=== PATIENT | female | born 1945 | race Two or more races ===

== ENCOUNTER 2024-04-12 10:51 | Inpatient (IN) | payer MEDICARE, OTHER ==
[~2024-04-12] VITALS: Ht 157.5 cm; Wt 55.8 kg
[2024-04-12 11:36] LABS: BASOPHILS % (AUTO) 0.3 % (0.0-2.0); EOSINOPHILS % (AUTO) 0.2 % (0.0-6.0); HEMATOCRIT 26 % (33-45); HEMOGLOBIN 8.7 g/dL (11.5-14.8); LYMPHOCYTES # (AUTO) 0.6 K/uL (0.8-4.8); LYMPHOCYTES % (AUTO) 4.5 % (20.0-44.0); MEAN CORPUSCULAR HEMOGLOBIN 30 PG (26.0-33.0); MEAN CORPUSCULAR HGB CONC 33 g/dl (31.0-36.0); MEAN CORPUSCULAR VOLUME 91 fL (82-100); MONOCYTES # (AUTO) 1.1 K/uL (0.1-1.30); NEUTROPHILS # (AUTO) 12.1 K/uL (1.8-8.9); PLATELET COUNT (AUTO) 471 K/uL (150-450); RED BLOOD CELL COUNT(AUTO) 2.89 MIL/uL (4.0-5.2); WHITE BLOOD COUNT (AUTO) 13.9 K/uL (4.3-11.0)
[2024-04-12 11:52] LABS: CALCIUM, SERUM 10.4 mg/dL (8.5-10.1); CARBON DIOXIDE 31 mmol/L (21-32); CHLORIDE 98 mmol/L (98-107); CREATININE 1.6 mg/dL (0.6-1.3); GLUCOSE 131 mg/dL (74-106); POTASSIUM 3.7 mmol/L (3.5-5.1); SODIUM SERUM 134 mmol/L (136-145); UREA NITROGEN, BLOOD 51 mg/dL (7-18)
[2024-04-12 11:57] LABS: ALANINE AMINOTRANSFERASE 55 U/L (12-78); ALBUMIN 1.6 g/dL (3.4-5.0); ALKALINE PHOSPHATASE 147 U/L (46-116); ASPARTATE AMINOTRANSFERASE 41 U/L (15-37); BILIRUBIN,DIRECT 0.2 mg/dL (0.0-0.2); BILIRUBIN,TOTAL 0.6 mg/dL (0.2-1.0); LIPASE 97 U/L (16-77); TOTAL PROTEIN, SERUM 6.3 g/dL (6.4-8.2)
[2024-04-12] MEDS ORDERED: AMIN30LI66 PO (12:44)
[2024-04-12] MEDS ORDERED: HEPA50007 SQ (12:44)
[2024-04-12] MEDS ORDERED: PANT40TA49 PO (12:44)
[2024-04-12] MEDS ORDERED: MAGN400O6 PO (12:44)
[2024-04-12] MEDS ORDERED: INSU100V3 SQ (12:44)
[2024-04-12] MEDS ORDERED: ACET325T53 PO (12:44)
[2024-04-12] MEDS ORDERED: ATOR80TA PO (12:44)
[2024-04-12] MEDS ORDERED: GLUC1KIT IM (12:44)
[2024-04-12] MEDS ORDERED: BISA10SU11 RC (12:44)
[2024-04-12] MEDS ORDERED: NA P133E RC (12:44)
[2024-04-12] MEDS ORDERED: NALO4SPR NS (12:44)
[2024-04-12] MEDS ORDERED: ATEN50TA PO (12:44)
[2024-04-12] MEDS ORDERED: MELA3TAB41 PO (12:44)
[2024-04-12] MEDS ORDERED: DOCU100C36 PO (12:44)
[2024-04-12] MEDS ORDERED: SUCR1TAB PO (12:44)
[2024-04-12] MEDS ORDERED: FOLI0.8T23 PO (12:44)
[2024-04-12] MEDS ORDERED: HYDR-4076 PO (12:44)
[2024-04-12] MEDS ORDERED: LEVO75TA7 PO (12:44)
[2024-04-12] MEDS ORDERED: SENN8.6T19 PO (12:44)
[2024-04-12] MEDS ORDERED: ONDA-97 PO (12:44)
[2024-04-12] MEDS ORDERED: RISP1TAB97 PO (12:44)
[2024-04-12] MEDS ORDERED: CALC667T8 PO (12:44)
[2024-04-12] MEDS ORDERED: CHOL200059 PO (12:44)
[2024-04-12] MEDS ORDERED: HYDR-4077 PO (12:44)
[2024-04-12] MEDS ORDERED: POLY17PO4 PO (12:44)
[2024-04-12] MEDS ORDERED: MAGNESIUM HYDROXIDE 30 ML UDC PO PRN ×2 (16:30)
[2024-04-12] MEDS ORDERED: BISACODYL SUPP (10 MG) 10 MG/SUPP.RECT SUPP.RECT RC PRN (16:30)
[2024-04-12] MEDS ORDERED: MAG HYDROX/AL HYDROX/SIMETH 30 ML UDC PO PRN (16:30)
[2024-04-12] MEDS ORDERED: POLYETHYLENE GLYCOL 3350 17 GM POWD.PACK PO PRN (16:30)
[2024-04-12] MEDS ORDERED: DEXTROSE 50%-WATER 50 ML DISP.SYRIN IV PRN (16:30)
[2024-04-12] MEDS ORDERED: NA PHOS,M-B/NA PHOS,DI-BA 1 EA ENEMA RC PRN (16:30)
[2024-04-12] MEDS ORDERED: ONDANSETRON HCL/PF 4 MG/2 ML VIAL IVP PRN (16:30)
[2024-04-12] MEDS ORDERED: ONDANSETRON 4 MG TAB.RAPDIS PO PRN (17:00)
[2024-04-12] MEDS: DOCUSATE SODIUM 100 MG CAPSULE PO SCH (17:00)
[2024-04-12] MEDS: hydrALAZINE HCL 50 MG TABLET PO SCH (17:00)
[2024-04-12] MEDS: risperiDONE 1 MG TABLET PO SCH (17:00)
[2024-04-12] MEDS: HEPARIN SODIUM, PORCINE 5000 UNITS/1 ML VIAL SQ SCH (17:00)
[2024-04-12] MEDS: SENNOSIDES 8.6 MG TABLET PO SCH (17:00)
[2024-04-12] MEDS: SUCRALFATE 1 G TABLET PO SCH (17:00)
[2024-04-12] MEDS: CALCIUM ACETATE 667 MG CAP/TAB PO SCH (18:00)
[2024-04-12 20:00] VITALS: BP 120/66; TEMP 98.6; O2SAT 99
[2024-04-12] MEDS: BLOOD SUGAR DIAGNOSTIC 1 EACH STRIP VI SCH (22:32)
[2024-04-12] MEDS: ACETAMINOPHEN 325 MG TABLET PO PRN (22:45)
[2024-04-13 07:19] LABS: BASOPHILS % (AUTO) 0.2 % (0.0-2.0); EOSINOPHILS # (AUTO) 0.1 K/uL (0.0-0.7); EOSINOPHILS % (AUTO) 0.4 % (0.0-6.0); HEMATOCRIT 27 % (33-45); HEMOGLOBIN 8.9 g/dL (11.5-14.8); LYMPHOCYTES # (AUTO) 0.7 K/uL (0.8-4.8); MEAN CORPUSCULAR HEMOGLOBIN 30 PG (26.0-33.0); MEAN CORPUSCULAR HGB CONC 33 g/dl (31.0-36.0); MEAN CORPUSCULAR VOLUME 91 fL (82-100); MONOCYTES # (AUTO) 1.1 K/uL (0.1-1.30); NEUTROPHILS # (AUTO) 11.3 K/uL (1.8-8.9); NEUTROPHILS % (AUTO) 86.4 % (43.0-81.0); PLATELET COUNT (AUTO) 447 K/uL (150-450); RED BLOOD CELL COUNT(AUTO) 2.98 MIL/uL (4.0-5.2); WHITE BLOOD COUNT (AUTO) 13.1 K/uL (4.3-11.0)
[2024-04-13 07:30] VITALS: BP 111/56; TEMP 98.6; O2SAT 93
[2024-04-13] MEDS: PANTOPRAZOLE 40 MG TABLET.DR PO SCH (07:30)
[2024-04-13] MEDS: LEVOTHYROXINE SODIUM 75 MCG TABLET PO SCH (07:30)
[2024-04-13 08:00] LABS: CALCIUM, SERUM 10.3 mg/dL (8.5-10.1); CREATININE 1.3 mg/dL (0.6-1.3); MAGNESIUM 2.2 mg/dL (1.8-2.4); PHOSPHORUS 3.1 mg/dL (2.5-4.9); POTASSIUM 3.3 mmol/L (3.5-5.1)
[2024-04-13] MEDS: VIT B CMPLX 3/FA/VIT C/BIOTIN 1 TAB TABLET PO SCH (08:15)
[2024-04-13] MEDS: ATENOLOL 50 MG TABLET PO SCH (08:15)
[2024-04-13 08:46] LABS: PLATELET ESTIMATE ADEQUATE
[2024-04-13 08:48] LABS: BAND % (MANUAL) 1 % (0.0-5.0); LYMPHOCYTES % (MANUAL) 8 % (16-48); MONOCYTES % (MANUAL) 7 % (0-11.0); MYELOCYTES % 1 % (0-0); NEUTROPHILS % (MANUAL) 83 (42-76)
[2024-04-13] MEDS: POTASSIUM CHLORIDE 20 MEQ TAB.PRT.SR PO ONE (11:59)
[2024-04-13 16:00] VITALS: BP 122/67; TEMP 97.3; O2SAT 95
[2024-04-13 20:00] VITALS: BP 112/65; TEMP 99.5; O2SAT 95
[2024-04-14 07:30] VITALS: BP 130/63; TEMP 98.4; O2SAT 99
[2024-04-14 07:37] LABS: INR 1.18 (0.91-1.10); PARTIAL THROMBOPLASTIN TIME 31.2 SEC (24.3-34.3); PROTHROMBIN TIME 12.4 SECS (9.2-11.1)
[2024-04-14 07:53] LABS: BASOPHILS % (AUTO) 0.1 % (0.0-2.0); EOSINOPHILS % (AUTO) 0.2 % (0.0-6.0); HEMATOCRIT 24 % (33-45); LYMPHOCYTES # (AUTO) 0.5 K/uL (0.8-4.8); LYMPHOCYTES % (AUTO) 2.8 % (20.0-44.0); MEAN CORPUSCULAR HEMOGLOBIN 31 PG (26.0-33.0); MEAN CORPUSCULAR HGB CONC 34 g/dl (31.0-36.0); MEAN CORPUSCULAR VOLUME 91 fL (82-100); MONOCYTES # (AUTO) 1.1 K/uL (0.1-1.30); MONOCYTES % (AUTO) 6.6 % (2.0-12.0); NEUTROPHILS # (AUTO) 15.4 K/uL (1.8-8.9); NEUTROPHILS % (AUTO) 90.3 % (43.0-81.0); PLATELET COUNT (AUTO) 481 K/uL (150-450); RED BLOOD CELL COUNT(AUTO) 2.63 MIL/uL (4.0-5.2); WHITE BLOOD COUNT (AUTO) 17.1 K/uL (4.3-11.0)
[2024-04-14 08:08] LABS: ALBUMIN 1.5 g/dL (3.4-5.0); BILIRUBIN,TOTAL 0.5 mg/dL (0.2-1.0); CALCIUM, SERUM 10.2 mg/dL (8.5-10.1); CREATININE 1.3 mg/dL (0.6-1.3); MAGNESIUM 2.2 mg/dL (1.8-2.4); PHOSPHORUS 2.5 mg/dL (2.5-4.9); POTASSIUM 3.3 mmol/L (3.5-5.1)
[2024-04-14] MEDS ORDERED: IOHEXOL 0 ML IV ONE (08:48)
[2024-04-14] MEDS ORDERED: LIDOCAINE HCL/MPF 1% 30 ML VIAL IJ ONE (08:49)
[2024-04-14] MEDS ORDERED: FENTANYL PF 100MCG/2ML AMPUL ONE (09:48)
[2024-04-14] MEDS ORDERED: MIDAZOLAM HCL 2 MG/2ML VIAL ONE (09:49)
[2024-04-14] MEDS: POTASSIUM CL. PREMIX PERIPHER. 50 ML IV SCH (10:50)
[2024-04-14] MEDS ORDERED: BACITRACIN ZINC OINT PACKET 1 EA PACKET TP ONE (11:40)
[2024-04-14 12:23] VITALS: BP 108/44; O2SAT 100
[2024-04-14] MEDS ORDERED: POTASSIUM CL. PREMIX PERIPHER. 50 ML IV SCH (14:00)
[2024-04-14 16:00] VITALS: BP 108/56; TEMP 97.5; O2SAT 96
[2024-04-14] MEDS: ANCEF 1 GM/50 ML D5W IV SCH (16:18)
[2024-04-14 20:00] VITALS: BP 116/65; TEMP 99.9; O2SAT 97
[2024-04-14] MEDS: *INSULIN REGULAR(HUMULIN R)HUM 100 UNIT/ML VIAL SQ PRN (22:10)
[2024-04-15] MEDS: Z GUARD REMEDY 4 OZ OINT TP PRN (04:37)
[2024-04-15 05:08] LABS: HEPATITIS B SURFACE AB Non Reactive (.)
[2024-04-15] MEDS: INSULIN REGULAR, HUMAN 100 UNIT/ML 3 ML VIAL SQ PRN (06:29)
[2024-04-15 07:38] LABS: BASOPHILS % (AUTO) 0.3 % (0.0-2.0); EOSINOPHILS % (AUTO) 0.1 % (0.0-6.0); HEMATOCRIT 25 % (33-45); HEMOGLOBIN 8.2 g/dL (11.5-14.8); LYMPHOCYTES # (AUTO) 0.6 K/uL (0.8-4.8); LYMPHOCYTES % (AUTO) 5.1 % (20.0-44.0); MEAN CORPUSCULAR HEMOGLOBIN 30 PG (26.0-33.0); MEAN CORPUSCULAR HGB CONC 33 g/dl (31.0-36.0); MEAN CORPUSCULAR VOLUME 92 fL (82-100); MONOCYTES # (AUTO) 0.9 K/uL (0.1-1.30); MONOCYTES % (AUTO) 7.2 % (2.0-12.0); NEUTROPHILS # (AUTO) 10.8 K/uL (1.8-8.9); NEUTROPHILS % (AUTO) 87.3 % (43.0-81.0); PLATELET COUNT (AUTO) 435 K/uL (150-450); WHITE BLOOD COUNT (AUTO) 12.4 K/uL (4.3-11.0)
[2024-04-15 07:56] LABS: CREATININE 1.1 mg/dL (0.6-1.3); POTASSIUM 3.6 mmol/L (3.5-5.1)
[2024-04-15 08:00] VITALS: BP 118/58; TEMP 98.4; O2SAT 96
[2024-04-15 13:09] LABS: *SPE A/G RATIO 0.4 (0.7-1.7); *SPE ALBUMIN 1.6 g/dL (2.9-4.4); *SPE ALPHA-1-GLOBULIN 0.5 g/dL (0.0-0.4); *SPE ALPHA-2-GLOBULIN 1.3 g/dL (0.4-1.0); *SPE GLOBULIN, TOTAL 3.8 g/dL (2.2-3.9); *SPE M-SPIKE Not Observed g/dL (Not Observed); *SPE PROTEIN TOTAL 5.4 g/dL (6.0-8.5); *SPEGAMMA GLOBULIN 1.1 g/dL (0.4-1.8)
[2024-04-15 16:39] VITALS: BP 91/54; TEMP 98.1; O2SAT 98
[2024-04-15 20:00] VITALS: BP 100/51; TEMP 98.2; O2SAT 92
[2024-04-16 08:42] VITALS: BP 114/70; TEMP 97.6; O2SAT 95
[2024-04-16 08:47] LABS: CALCIUM, SERUM 9.9 mg/dL (8.5-10.1); CREATININE 1.2 mg/dL (0.6-1.3); POTASSIUM 3.4 mmol/L (3.5-5.1)
[2024-04-16 11:08] LABS: PTH, INTACT 8 pg/mL (15-65)
[2024-04-16] MEDS: POTASSIUM CHLORIDE 20 MEQ TAB.PRT.SR PO ONE (11:42)
[2024-04-16] MEDS: hydrALAZINE HCL 25 MG TABLET PO PRN (12:13)
[2024-04-16 16:02] VITALS: BP 114/63; TEMP 98.1; O2SAT 96
== END 2024-04-16 17:07 | DRG 674 ==
LOC: ER 11:22 → TELE 18:15 → MED 23:58
PROVIDERS: ADMIT Internal Medicine; ATTEND Internal Medicine
PROC: 0JPT3XZ Removal of Tunneled Vascular Access Device from Trunk Subcutaneous Tissue and Fascia, Percutaneous Approach (ICD-10-PCS; principal; 2024-04-14)
PROC: 0JH63XZ Insertion of Tunneled Vascular Access Device into Chest Subcutaneous Tissue and Fascia, Percutaneous Approach (ICD-10-PCS; 2024-04-14)
PROC: 05PY33Z Removal of Infusion Device from Upper Vein, Percutaneous Approach (ICD-10-PCS; 2024-04-14)
PROC: 02HV33Z Insertion of Infusion Device into Superior Vena Cava, Percutaneous Approach (ICD-10-PCS; 2024-04-14)
PROC: B518YZA Fluoroscopy of Superior Vena Cava using Other Contrast, Guidance (ICD-10-PCS; 2024-04-14)
PROC: 5A1D70Z Performance of Urinary Filtration, Intermittent, Less than 6 Hours Per Day (ICD-10-PCS; 2024-04-15)
DX: T82.41XA Breakdown (mechanical) of vascular dialysis catheter, initial encounter (principal); I12.0 Hypertensive chronic kidney disease with stage 5 chronic kidney disease or end stage renal disease; N18.6 End stage renal disease; Y71.2 Prosthetic and other implants, materials and accessory cardiovascular devices associated with adverse incidents; E11.22 Type 2 diabetes mellitus with diabetic chronic kidney disease; M89.8X9 Other specified disorders of bone, unspecified site; K21.9 Gastro-esophageal reflux disease without esophagitis; Z99.2 Dependence on renal dialysis; E03.9 Hypothyroidism, unspecified; E87.6 Hypokalemia; F20.9 Schizophrenia, unspecified; R53.1 Weakness; J44.9 Chronic obstructive pulmonary disease, unspecified; F29 Unspecified psychosis not due to a substance or known physiological condition; D63.8 Anemia in other chronic diseases classified elsewhere; E83.9 Disorder of mineral metabolism, unspecified; Y83.8 Other surgical procedures as the cause of abnormal reaction of the patient, or of later complication, without mention of misadventure at the time of the procedure; Y92.129 Unspecified place in nursing home as the place of occurrence of the external cause
CPT/HCPCS: 36415; 71045-TC; 76770-TC; 80048-TC; 80053-TC; 80076-TC; 82550-TC; 82962-TC; 83690-TC; 83735-TC; 83880; 83970; 84100-TC; 84155; 84165; 84484-TC; 85025-TC; 85610-TC; 85730-TC; 86706; 87081-TC; 87340; 90935-TC; 92526; 92611-TC; A4223; C1750; C1757; C1769; C1894; G0378; J0690; J1644; J1815; J2250; J2704; J3010; J3480; J3490; J7030; J7050; J7060; Q9967

== ENCOUNTER 2024-07-26 22:09 | Inpatient (IN) | payer MEDICARE, OTHER ==
[~2024-07-26] VITALS: Ht 152.4 cm; Wt 46.3 kg
[~2024-07-26 22:09] MED LIST: ACET325T53 PO; AMIN30LI66 PO; ATEN50TA PO; ATOR80TA PO; BISA10SU11 RC; CALC667T8 PO; CHOL200059 PO; DOCU100C36 PO; FOLI0.8T23 PO; GLUC1KIT IM; HEPA50007 SQ; HYDR-4076 PO; HYDR-4077 PO; INSU100V3 SQ; LEVO75TA7 PO; MAGN400O6 PO; MELA3TAB41 PO; NA P133E RC; NALO4SPR NS; ONDA-97 PO; PANT40TA49 PO; POLY17PO4 PO; RISP1TAB97 PO; SENN8.6T19 PO; SUCR1TAB PO
[2024-07-26 23:07] LABS: BASOPHILS % (AUTO) 0.6 % (0.0-2.0); EOSINOPHILS # (AUTO) 0.1 K/uL (0.0-0.7); EOSINOPHILS % (AUTO) 1.8 % (0.0-6.0); HEMATOCRIT 24 % (33-45); HEMOGLOBIN 7.9 g/dL (11.5-14.8); LYMPHOCYTES # (AUTO) 1.7 K/uL (0.8-4.8); LYMPHOCYTES % (AUTO) 23.2 % (20.0-44.0); MEAN CORPUSCULAR HEMOGLOBIN 30 PG (26.0-33.0); MEAN CORPUSCULAR HGB CONC 33 g/dl (31.0-36.0); MEAN CORPUSCULAR VOLUME 89 fL (82-100); MONOCYTES # (AUTO) 0.5 K/uL (0.1-1.30); MONOCYTES % (AUTO) 7.6 % (2.0-12.0); NEUTROPHILS # (AUTO) 4.8 K/uL (1.8-8.9); NEUTROPHILS % (AUTO) 66.8 % (43.0-81.0); PLATELET COUNT (AUTO) 459 K/uL (150-450); RED BLOOD CELL COUNT(AUTO) 2.65 MIL/uL (4.0-5.2); RED CELL DISTRIBUTION WIDTH 15.3 % (11.5-15.0); WHITE BLOOD COUNT (AUTO) 7.2 K/uL (4.3-11.0)
[2024-07-26 23:19] LABS: CALCIUM, SERUM 9.9 mg/dL (8.5-10.1); POTASSIUM 3.6 mmol/L (3.5-5.1)
[2024-07-26 23:27] LABS: ALBUMIN 1.9 g/dL (3.4-5.0); BILIRUBIN,TOTAL 0.3 mg/dL (0.2-1.0); TOTAL PROTEIN, SERUM 6.6 g/dL (6.4-8.2)
[2024-07-27 00:47] LABS: APPEARANCE,URINE CLOUDY (CLEAR); BILIRUBIN,URINE NEGATIVE (NEGATIVE); BLOOD, URINE TRACE-INTA Ery/uL (NEGATIVE); COLOR,URINE YELLOW (YELLOW); KETONES,URINE NEGATIVE (NEGATIVE); LEUKOCYTE ESTERASE ,URINE 3+ (NEGATIVE); NITRITE, URINE POSITIVE (NEGATIVE); PROTEIN,URINE TRACE mg/dl (NEGATIVE); UGLUCOSE NEGATIVE (NEGATIVE); UROBILINOGEN,URINE 0.2 EU/dL (0.2)
[2024-07-27] MEDS: CEFTRIAXONE 1 G in IV D5W 50 ML IV STA (01:00)
[2024-07-27 01:23] LABS: ADD URINE CULTURE YES; BACTERIA,URINE Many /HPF (None Seen); WBC,URINE TOO NUMEROUS TO COUN /HPF (0-3)
[2024-07-27 01:24] LABS: CALCIUM OXALATE CRYSTALS,UR Few /HPF (None Seen)
[2024-07-27 01:26] LABS: SQUAMOUS EPITHELIAL CELL,UR Few /HPF (None Seen)
[2024-07-27] MEDS ORDERED: MAG HYDROX/AL HYDROX/SIMETH 30 ML UDC PO PRN (02:00)
[2024-07-27] MEDS ORDERED: ONDANSETRON HCL/PF 4 MG/2 ML VIAL IVP PRN (02:00)
[2024-07-27] MEDS ORDERED: ACETAMINOPHEN 325 MG TABLET PO PRN (02:00)
[2024-07-27] MEDS ORDERED: MAGNESIUM HYDROXIDE 30 ML UDC PO PRN (02:00)
[2024-07-27] MEDS ORDERED: DEXTROSE 50%-WATER 50 ML DISP.SYRIN IV PRN (02:00)
[2024-07-27] MEDS ORDERED: CEFTRIAXONE 1GM BAG (ER ONLY) 50 ML IV ONE (02:09)
[2024-07-27] MEDS: IV NS 0.9% 1,000 ML IV ONE (02:28)
[2024-07-27 03:00] VITALS: BP 139/72; TEMP 97.3; O2SAT 100
[2024-07-27] MEDS: ENOXAPARIN SODIUM 30 MG/0.3 ML DISP.SYRIN SQ SCH (03:49)
[2024-07-27 08:00] VITALS: BP 160/82; TEMP 97.3; O2SAT 100
[2024-07-27] MEDS ORDERED: IPRA3AMP23 IH (08:01)
[2024-07-27] MEDS ORDERED: MODAFINIL PO (08:01)
[2024-07-27] MEDS ORDERED: NUT.237L85 PO (08:01)
[2024-07-27] MEDS ORDERED: CHLO473M5 PO (08:01)
[2024-07-27] MEDS: BLOOD SUGAR DIAGNOSTIC 1 EACH STRIP IN SCH (08:28)
[2024-07-27] MEDS: PANTOPRAZOLE 40 MG TABLET.DR PO SCH (08:48)
[2024-07-27 10:07] LABS: CALCIUM, SERUM 10.2 mg/dL (8.5-10.1); CREATININE 0.8 mg/dL (0.6-1.3); MAGNESIUM 2.1 mg/dL (1.8-2.4); PHOSPHORUS 3.6 mg/dL (2.5-4.9); POTASSIUM 4.9 mmol/L (3.5-5.1)
[2024-07-27 10:08] LABS: THYROID STIMULATING HORMONE 3.12 uIU/mL (0.358-3.74)
[2024-07-27 10:42] LABS: BASOPHILS # (AUTO) 0.1 K/uL (0.0-0.2); BASOPHILS % (AUTO) 0.8 % (0.0-2.0); EOSINOPHILS # (AUTO) 0.1 K/uL (0.0-0.7); EOSINOPHILS % (AUTO) 1.6 % (0.0-6.0); HEMATOCRIT 30 % (33-45); HEMOGLOBIN 9.4 g/dL (11.5-14.8); LYMPHOCYTES # (AUTO) 1.5 K/uL (0.8-4.8); LYMPHOCYTES % (AUTO) 20.3 % (20.0-44.0); MEAN CORPUSCULAR HEMOGLOBIN 29 PG (26.0-33.0); MEAN CORPUSCULAR HGB CONC 31 g/dl (31.0-36.0); MEAN CORPUSCULAR VOLUME 93 fL (82-100); MONOCYTES # (AUTO) 0.4 K/uL (0.1-1.30); MONOCYTES % (AUTO) 5.8 % (2.0-12.0); NEUTROPHILS # (AUTO) 5.4 K/uL (1.8-8.9); NEUTROPHILS % (AUTO) 71.5 % (43.0-81.0); PLATELET COUNT (AUTO) 444 K/uL (150-450); RED BLOOD CELL COUNT(AUTO) 3.22 MIL/uL (4.0-5.2); RED CELL DISTRIBUTION WIDTH 15.7 % (11.5-15.0); WHITE BLOOD COUNT (AUTO) 7.6 K/uL (4.3-11.0)
[2024-07-27] MEDS: INSULIN REGULAR, HUMAN 100 UNIT/ML 3 ML VIAL SQ PRN (11:50)
[2024-07-27 13:41] LABS: CREATININE, URINE 60.5 MG/DL (30.0-125.0); URINE TOTAL PROTEIN 26.8 mg/dL (0-11.9)
[2024-07-27] MEDS: IV NS 0.9% 1,000 ML IV PRN (14:47)
[2024-07-27 16:00] VITALS: BP 139/67; TEMP 97.4; O2SAT 100
[2024-07-27 19:22] LABS: THYROID STIMULATING HORMONE 3.03 uIU/mL (0.358-3.74)
[2024-07-27 20:00] VITALS: BP 146/61; TEMP 97.9; O2SAT 100
[2024-07-27] MEDS ORDERED: CEFTRIAXONE 1 G in IV D5W 50 ML IV SCH (23:00)
[2024-07-28] MEDS: CEFTRIAXONE 1 G in IV D5W 50 ML IV SCH (00:12)
[2024-07-28 07:07] LABS: BASOPHILS % (AUTO) 0.7 % (0.0-2.0); EOSINOPHILS # (AUTO) 0.1 K/uL (0.0-0.7); EOSINOPHILS % (AUTO) 1.3 % (0.0-6.0); HEMATOCRIT 28 % (33-45); HEMOGLOBIN 8.8 g/dL (11.5-14.8); LYMPHOCYTES # (AUTO) 1.3 K/uL (0.8-4.8); LYMPHOCYTES % (AUTO) 19.2 % (20.0-44.0); MEAN CORPUSCULAR HEMOGLOBIN 29 PG (26.0-33.0); MEAN CORPUSCULAR HGB CONC 32 g/dl (31.0-36.0); MEAN CORPUSCULAR VOLUME 90 fL (82-100); MONOCYTES # (AUTO) 0.4 K/uL (0.1-1.30); MONOCYTES % (AUTO) 5.2 % (2.0-12.0); NEUTROPHILS # (AUTO) 5.1 K/uL (1.8-8.9); NEUTROPHILS % (AUTO) 73.6 % (43.0-81.0); PLATELET COUNT (AUTO) 497 K/uL (150-450); RED BLOOD CELL COUNT(AUTO) 3.07 MIL/uL (4.0-5.2); RED CELL DISTRIBUTION WIDTH 15.5 % (11.5-15.0); WHITE BLOOD COUNT (AUTO) 6.9 K/uL (4.3-11.0)
[2024-07-28 07:22] LABS: CALCIUM, SERUM 9.5 mg/dL (8.5-10.1); CREATININE 0.9 mg/dL (0.6-1.3); MAGNESIUM 1.8 mg/dL (1.8-2.4); PHOSPHORUS 3.5 mg/dL (2.5-4.9); POTASSIUM 4.1 mmol/L (3.5-5.1)
[2024-07-28 07:25] LABS: THYROID STIMULATING HORMONE 3.35 uIU/mL (0.358-3.74); URIC ACID 5.6 mg/dL (2.6-7.2)
[2024-07-28 20:00] VITALS: BP 161/74; TEMP 98.1; O2SAT 100
[2024-07-29 04:08] LABS: FOLIC ACID > 20.0 ng/mL (>3.0)
[2024-07-29 07:00] VITALS: BP 180/88; TEMP 98.2; O2SAT 100
[2024-07-29] MEDS ORDERED: CEPH-570 PO (12:55)
[2024-07-29 16:00] VITALS: BP 155/86; TEMP 97.9; O2SAT 100
[2024-07-29 20:00] VITALS: BP 132/70; TEMP 98.1; O2SAT 100
[2024-07-30] MEDS: hydrALAZINE HCL IV 20 MG VIAL IV ONE (08:26)
[2024-07-30 08:27] VITALS: BP 164/88; TEMP 97.9; O2SAT 96
[2024-08-01 06:10] LABS: VITAMIN B1 THIAMINE,WB 120.2 nmol/L (66.5-200.0)
== END 2024-07-30 09:34 | DRG 689 ==
LOC: ER 22:10 → MED 07-27 00:24
PROVIDERS: ADMIT Nurse Practitioner Family; ATTEND Nurse Practitioner Family
DX: N39.0 Urinary tract infection, site not specified (principal); G93.41 Metabolic encephalopathy; Z68.1 Body mass index [BMI] 19.9 or less, adult; D68.59 Other primary thrombophilia; J90 Pleural effusion, not elsewhere classified; E87.1 Hypo-osmolality and hyponatremia; E86.0 Dehydration; I13.10 Hypertensive heart and chronic kidney disease without heart failure, with stage 1 through stage 4 chronic kidney disease, or unspecified chronic kidney disease; E11.22 Type 2 diabetes mellitus with diabetic chronic kidney disease; R11.2 Nausea with vomiting, unspecified; N18.9 Chronic kidney disease, unspecified; E03.9 Hypothyroidism, unspecified; J44.9 Chronic obstructive pulmonary disease, unspecified; D64.9 Anemia, unspecified; I25.10 Atherosclerotic heart disease of native coronary artery without angina pectoris; G30.9 Alzheimer's disease, unspecified; F02.80 Dementia in other diseases classified elsewhere, unspecified severity, without behavioral disturbance, psychotic disturbance, mood disturbance, and anxiety; B95.61 Methicillin susceptible Staphylococcus aureus infection as the cause of diseases classified elsewhere; R62.7 Adult failure to thrive; E78.5 Hyperlipidemia, unspecified; K21.9 Gastro-esophageal reflux disease without esophagitis; R13.10 Dysphagia, unspecified; M89.8X9 Other specified disorders of bone, unspecified site; M15.9 Polyosteoarthritis, unspecified; Z79.4 Long term (current) use of insulin; Z77.22 Contact with and (suspected) exposure to environmental tobacco smoke (acute) (chronic); Z79.899 Other long term (current) drug therapy; Z79.890 Hormone replacement therapy
CPT/HCPCS: 36415; 71045-TC; 80048-TC; 80053-TC; 81001; 82570-TC; 82607-TC; 82962-TC; 83735-TC; 83880; 83921; 83935-TC; 84100-TC; 84300-TC; 84425; 84443-TC; 84484-TC; 84550-TC; 85025-TC; 87040-TC; 87081-TC; 87086-TC; A4223; A6213; G0378; J0360; J0696; J1650; J1815; J7030; J7060

== ENCOUNTER 2024-10-06 10:47 | Inpatient (IN) | payer MEDICARE, OTHER ==
[~2024-10-06] VITALS: Ht 167.6 cm; Wt 51.3 kg
[~2024-10-06 10:47] MED LIST changes: +CEPH-570 PO; +CHLO473M5 PO; -HEPA50007 SQ; +IPRA3AMP23 IH; +MODAFINIL PO; +NUT.237L85 PO; -RISP1TAB97 PO
[2024-10-06] MEDS ORDERED: FAMO20TA80 PO (11:36)
[2024-10-06] MEDS ORDERED: AMIN30LI2 PO (11:36)
[2024-10-06 12:02] LABS: PLATELET COUNT (AUTO) 361 K/uL (150-450); RED BLOOD CELL COUNT(AUTO) 3.43 MIL/uL (4.0-5.2); RED CELL DISTRIBUTION WIDTH 16.0 % (11.5-15.0); WHITE BLOOD COUNT (AUTO) 6.9 K/uL (4.3-11.0)
[2024-10-06 12:17] LABS: INR 1.11 (0.91-1.10); LACTIC ACID 1.1 mmol/L (0.4-2.0)
[2024-10-06 12:22] LABS: ASPARTATE AMINOTRANSFERASE 197.0 U/L (15-37); CALCIUM, SERUM 9.2 mg/dL (8.5-10.1); CREATININE 0.9 mg/dL (0.6-1.3); TOTAL PROTEIN, SERUM 7.2 g/dL (6.4-8.2); UREA NITROGEN, BLOOD 17.0 mg/dL (7-18)
[2024-10-06 12:26] LABS: SODIUM SERUM 139.0 mmol/L (136-145)
[2024-10-06 13:30] VITALS: BP_SYST 179; BP_SYST 180; BP_DIAS 82; BP_DIAS 90; TEMP 98.1; O2SAT 95
[2024-10-06 16:00] VITALS: BP 150/59; TEMP 97.7; O2SAT 96
[2024-10-06] MEDS ORDERED: DEXTROSE 50%-WATER 50 ML DISP.SYRIN IV PRN (16:30)
[2024-10-06] MEDS ORDERED: Z GUARD REMEDY 4 OZ OINT TP PRN (16:30)
[2024-10-06] MEDS ORDERED: ONDANSETRON HCL/PF 4 MG/2 ML VIAL IVP PRN (16:30)
[2024-10-06] MEDS ORDERED: ENOXAPARIN SODIUM 40 MG/0.4 ML DISP.SYRIN SQ SCH (16:30)
[2024-10-06] MEDS ORDERED: IV D5/0.45 NACL 1,000 ML IV PRN (16:30)
[2024-10-06] MEDS: POTASSIUM CHLORIDE 20 MEQ TAB.PRT.SR PO ONE (17:25)
[2024-10-06] MEDS: ENOXAPARIN SODIUM 40 MG/0.4 ML DISP.SYRIN SQ SCH (17:25)
[2024-10-06] MEDS: Potassium Chloride 40 MEQ in IV D5/0.45 NACL 1,000 ML IV SCH (17:28)
[2024-10-06] MEDS: BLOOD SUGAR DIAGNOSTIC 1 EACH STRIP IN SCH (18:15)
[2024-10-06] MEDS: POTASSIUM CHLORIDE 20 MEQ POWDER PACKET PO ONE (18:15)
[2024-10-06 20:00] VITALS: BP 170/76; TEMP 98.2; O2SAT 95
[2024-10-06] MEDS: INSULIN REGULAR, HUMAN 100 UNIT/ML 3 ML VIAL SQ PRN (22:02)
[2024-10-07] MEDS: hydrALAZINE HCL IV 20 MG VIAL IV ONE (01:30)
[2024-10-07 02:15] VITALS: BP 155/70
[2024-10-07 07:24] LABS: PLATELET COUNT (AUTO) 269 K/uL (150-450); RED BLOOD CELL COUNT(AUTO) 3.25 MIL/uL (4.0-5.2); RED CELL DISTRIBUTION WIDTH 16.0 % (11.5-15.0); WHITE BLOOD COUNT (AUTO) 7.6 K/uL (4.3-11.0)
[2024-10-07 08:11] LABS: LDL 33.0 mg/dL (0-99)
[2024-10-07 08:26] LABS: ASPARTATE AMINOTRANSFERASE 224.0 U/L (15-37); CALCIUM, SERUM 8.6 mg/dL (8.5-10.1); CREATININE 0.7 mg/dL (0.6-1.3); PHOSPHORUS 1.5 mg/dL (2.5-4.9); SODIUM SERUM 138.0 mmol/L (136-145); TOTAL PROTEIN, SERUM 6.6 g/dL (6.4-8.2); UREA NITROGEN, BLOOD 11.0 mg/dL (7-18)
[2024-10-07] MEDS: LEVOTHYROXINE SODIUM 75 MCG TABLET PO SCH (08:38)
[2024-10-07] MEDS: PANTOPRAZOLE 40 MG TABLET.DR PO SCH (08:39)
[2024-10-07] MEDS: ATENOLOL 50 MG TABLET PO SCH (08:39)
[2024-10-07] MEDS: hydrALAZINE HCL IV 20 MG VIAL IV PRN (10:55)
[2024-10-07 16:43] LABS: IRON, SERUM 27.0 ug/dl (50-175)
[2024-10-07] MEDS: Sodium Phosphate 15 MMOL in IV NS 0.9% 245 ML IV SCH (17:36)
[2024-10-07 20:57] VITALS: BP 161/88; TEMP 97.2; O2SAT 98
[2024-10-08 08:00] VITALS: BP 157/84; TEMP 98.1; O2SAT 98
[2024-10-08 08:07] LABS: AFP, TUMOR MARKER <1.8 ng/mL (0.0-9.2); CARBOHYDRATE AG 19-9 3707 U/mL (0-35); FOLIC ACID 19.9 ng/mL (>3.0); FREE KAPPA LT CHAINS SERUM 89.6 mg/L (3.3-19.4); FREE LAMBDA LT CHAIN SERUM 86.9 mg/L (5.7-26.3); IMMUNOGLOBULIN A, SERUM 532 mg/dL (64-422); IMMUNOGLOBULIN M, SERUM 64 mg/dL (26-217); KAPPA/LAMBDA RATIO SERUM 1.03 (0.26-1.65)
[2024-10-08] MEDS: ACETAMINOPHEN 325 MG TABLET PO PRN (19:50)
[2024-10-08 20:00] VITALS: BP 104/71; TEMP 102.7; O2SAT 94
[2024-10-09 04:06] LABS: HEPATITIS B CORE AB, TOTAL Negative (Negative); HEPATITIS B SURFACE AB (QUAL) Non Reactive (.)
[2024-10-09 08:00] VITALS: BP 124/60; TEMP 97.7; O2SAT 95
[2024-10-09 08:09] LABS: CALCIUM, SERUM 8.7 mg/dL (8.5-10.1); CREATININE 1.0 mg/dL (0.6-1.3); SODIUM SERUM 137.0 mmol/L (136-145); UREA NITROGEN, BLOOD 8.0 mg/dL (7-18)
[2024-10-09 08:45] LABS: PLATELET COUNT (AUTO) 226 K/uL (150-450); RED BLOOD CELL COUNT(AUTO) 3.34 MIL/uL (4.0-5.2); RED CELL DISTRIBUTION WIDTH 16.1 % (11.5-15.0); WHITE BLOOD COUNT (AUTO) 14.2 K/uL (4.3-11.0)
[2024-10-09] MEDS: IV D5/ 0.9% NACL 1,000 ML IV SCH (11:46)
[2024-10-09 13:03] LABS: SERUM AMMONIA 15.0 umol/L (11-32)
[2024-10-09 16:00] VITALS: BP 119/68; TEMP 98.4; O2SAT 96
[2024-10-09 20:00] VITALS: BP 128/50; TEMP 98.4; O2SAT 96
[2024-10-10 07:04] LABS: FIBRINOGEN ACTIVITY 314.0 Mg/dL (213-485); INR 1.3 (0.91-1.10)
[2024-10-10 07:14] LABS: PLATELET COUNT (AUTO) 191 K/uL (150-450); RED BLOOD CELL COUNT(AUTO) 3.31 MIL/uL (4.0-5.2); RED CELL DISTRIBUTION WIDTH 16.5 % (11.5-15.0); WHITE BLOOD COUNT (AUTO) 11.5 K/uL (4.3-11.0)
[2024-10-10 07:30] VITALS: BP 158/85; TEMP 97.5; O2SAT 97
[2024-10-10 09:28] LABS: CALCIUM, SERUM 8.3 mg/dL (8.5-10.1); CREATININE 0.9 mg/dL (0.6-1.3); SODIUM SERUM 135.0 mmol/L (136-145); UREA NITROGEN, BLOOD 10.0 mg/dL (7-18)
[2024-10-10] MEDS: MORPHINE SULFATE INJ 2 MG/ML DISP.SYRIN IV ONE (13:57)
[2024-10-10 16:00] VITALS: BP 138/66; TEMP 98.2; O2SAT 97
[2024-10-10] MEDS: IV D5/ 0.9% NACL 1,000 ML IV PRN (16:22)
[2024-10-11 06:46] LABS: INR 1.3 (0.91-1.10)
[2024-10-11 06:51] LABS: CALCIUM, SERUM 8.4 mg/dL (8.5-10.1); CREATININE 1.0 mg/dL (0.6-1.3); SODIUM SERUM 140.0 mmol/L (136-145); UREA NITROGEN, BLOOD 11.0 mg/dL (7-18)
[2024-10-11 06:53] LABS: PLATELET COUNT (AUTO) 142 K/uL (150-450); RED BLOOD CELL COUNT(AUTO) 2.95 MIL/uL (4.0-5.2); RED CELL DISTRIBUTION WIDTH 16.4 % (11.5-15.0); WHITE BLOOD COUNT (AUTO) 9.5 K/uL (4.3-11.0)
[2024-10-11 07:30] VITALS: BP 169/82; TEMP 97.9; O2SAT 98
[2024-10-11 08:00] VITALS: BP 169/82; TEMP 97.9; O2SAT 98
[2024-10-11 09:38] VITALS: BP 149/71
[2024-10-11] MEDS ORDERED: IOHEXOL-350 100 ML VIAL IV ONE (11:36)
[2024-10-11] MEDS ORDERED: IOHEXOL-300 100 ML VIAL IV ONE (11:41)
[2024-10-11] MEDS ORDERED: IV NS 0.9% 250 ML IV ONE (11:41)
[2024-10-11 16:00] VITALS: BP 112/64; TEMP 98.2; O2SAT 96
[2024-10-11 20:00] VITALS: BP 126/58; TEMP 97.7; O2SAT 97
[2024-10-12 08:00] VITALS: BP 159/83; TEMP 98.2; O2SAT 96
[2024-10-12 10:27] LABS: PLATELET COUNT (AUTO) 129 K/uL (150-450); RED BLOOD CELL COUNT(AUTO) 3.06 MIL/uL (4.0-5.2); RED CELL DISTRIBUTION WIDTH 16.3 % (11.5-15.0); WHITE BLOOD COUNT (AUTO) 11.1 K/uL (4.3-11.0)
[2024-10-12 10:37] LABS: CALCIUM, SERUM 8.3 mg/dL (8.5-10.1); CREATININE 0.9 mg/dL (0.6-1.3); SODIUM SERUM 136.0 mmol/L (136-145); UREA NITROGEN, BLOOD 9.0 mg/dL (7-18)
[2024-10-12] MEDS ORDERED: DOSING PER PHARMACY-ZOSYN IV 1 EA EA XX PRN (12:00)
[2024-10-12 13:00] VITALS: BP 126/63; TEMP 98.5; O2SAT 97
[2024-10-12] MEDS: PIPERACILLIN /TAZOBACTAM 3.375 G in IV D5W 100 ML IV SCH (13:50)
[2024-10-12 15:52] VITALS: BP 100/48; TEMP 98; O2SAT 96
[2024-10-12 16:05] VITALS: BP 100/48
[2024-10-12] MEDS: POTASSIUM CHLORIDE 20 MEQ POWDER PACKET GT ONE (16:05)
[2024-10-12] MEDS ORDERED: METR500T PO (17:52)
[2024-10-12] MEDS ORDERED: AMOX-430 PO (17:52)
[2024-10-12] MEDS ORDERED: OXYC5CAP18 PO (17:53)
[2024-10-13 12:07] LABS: *SPE A/G RATIO 0.5 (0.7-1.7); *SPE ALBUMIN 2.1 g/dL (2.9-4.4); *SPE ALPHA-1-GLOBULIN 0.4 g/dL (0.0-0.4); *SPE ALPHA-2-GLOBULIN 0.8 g/dL (0.4-1.0); *SPE BETA GLOBULIN 0.9 g/dL (0.7-1.3); *SPE GLOBULIN, TOTAL 3.9 g/dL (2.2-3.9); *SPE M-SPIKE Not Observed g/dL (Not Observed); *SPE PROTEIN TOTAL 6.0 g/dL (6.0-8.5); *SPEGAMMA GLOBULIN 1.8 g/dL (0.4-1.8)
== END 2024-10-12 19:30 | disposition hospice, home (50) | DRG 435 ==
LOC: ER 10:50 → MED 11:58
PROVIDERS: ADMIT Nurse Practitioner Acute Care; ATTEND Nurse Practitioner Family
DX: C25.9 Malignant neoplasm of pancreas, unspecified (principal); G93.41 Metabolic encephalopathy; D68.59 Other primary thrombophilia; R64 Cachexia; I87.1 Compression of vein; E44.0 Moderate protein-calorie malnutrition; Z68.1 Body mass index [BMI] 19.9 or less, adult; C78.7 Secondary malignant neoplasm of liver and intrahepatic bile duct; K80.21 Calculus of gallbladder without cholecystitis with obstruction; E86.0 Dehydration; R62.7 Adult failure to thrive; F02.80 Dementia in other diseases classified elsewhere, unspecified severity, without behavioral disturbance, psychotic disturbance, mood disturbance, and anxiety; G30.9 Alzheimer's disease, unspecified; J44.9 Chronic obstructive pulmonary disease, unspecified; K21.9 Gastro-esophageal reflux disease without esophagitis; D64.9 Anemia, unspecified; E03.9 Hypothyroidism, unspecified; E78.5 Hyperlipidemia, unspecified; E88.09 Other disorders of plasma-protein metabolism, not elsewhere classified; R13.10 Dysphagia, unspecified; E80.6 Other disorders of bilirubin metabolism; R74.01 Elevation of levels of liver transaminase levels; M19.90 Unspecified osteoarthritis, unspecified site; I10 Essential (primary) hypertension; E11.9 Type 2 diabetes mellitus without complications; Z79.4 Long term (current) use of insulin
CPT/HCPCS: 36415; 70450-TC; 71045-TC; 71260-TC; 74181-TC; 76700-TC; 78226; 80048-TC; 80053-TC; 80061-TC; 80076-TC; 82105; 82140-TC; 82247-TC; 82248-TC; 82378; 82607-TC; 82728-TC; 82784; 82962-TC; 83540-TC; 83605-TC; 83735-TC; 84100-TC; 84155; 84165; 84439-TC; 84443-TC; 85025-TC; 85396; 85610-TC; 85730-TC; 86301; 86304; 86334; 86704; 86706; 86803; 87040-TC; 87081-TC; 87340; 92526; 92611; A4223; A9537; A9563; G0378; J0360; J1650; J1815; J2270; J2543; J3480; J3490; J7030; J7042; J7050; J7060; Q9967

== ENCOUNTER 2024-12-30 15:19 | Inpatient (IN) | payer MEDICARE, OTHER ==
[~2024-12-30] VITALS: Ht 165.1 cm; Wt 49.9 kg
[~2024-12-30 15:19] MED LIST changes: +AMIN30LI2 PO; -AMIN30LI66 PO; +AMOX-430 PO; -CEPH-570 PO; -CHLO473M5 PO; +FAMO20TA80 PO; -HYDR-4076 PO; +METR500T PO; -NUT.237L85 PO; -ONDA-97 PO; +OXYC5CAP18 PO; -PANT40TA49 PO
[2024-12-30] MEDS: IV NS 0.9% 500 ML BAG IV ONE (15:46)
[2024-12-30 16:04] LABS: PLATELET COUNT (AUTO) 302 K/uL (150-450); RED BLOOD CELL COUNT(AUTO) 3.21 MIL/uL (4.0-5.2); RED CELL DISTRIBUTION WIDTH 15.9 % (11.5-15.0); WHITE BLOOD COUNT (AUTO) 6.4 K/uL (4.3-11.0)
[2024-12-30 16:14] LABS: CALCIUM, SERUM 8.1 mg/dL (8.5-10.1); CREATININE 1.2 mg/dL (0.6-1.3); SODIUM SERUM 142.0 mmol/L (136-145); UREA NITROGEN, BLOOD 16.0 mg/dL (7-18)
[2024-12-30 16:18] LABS: INR 1.12 (0.91-1.10)
[2024-12-30 17:44] LABS: APPEARANCE,URINE CLEAR (CLEAR); BLOOD, URINE NEGATIVE Ery/uL (NEGATIVE); LEUKOCYTE ESTERASE ,URINE NEGATIVE (NEGATIVE); NITRITE, URINE NEGATIVE (NEGATIVE); UGLUCOSE NEGATIVE (NEGATIVE)
[2024-12-30] MEDS ORDERED: ACETAMINOPHEN 325 MG TABLET PO PRN (18:00)
[2024-12-30] MEDS ORDERED: HYDROCODONE/APAP 5/325MG TABLET PO PRN (18:00)
[2024-12-30] MEDS ORDERED: ONDANSETRON HCL/PF 4 MG/2 ML VIAL IVP PRN (18:00)
[2024-12-30 20:00] VITALS: BP 145/77; TEMP 98.2; O2SAT 98
[2024-12-30] MEDS: ENOXAPARIN SODIUM 40 MG/0.4 ML DISP.SYRIN SQ SCH (22:04)
[2024-12-30] MEDS: IV D5/0.45 NACL 1,000 ML IV PRN (22:04)
[2024-12-31 08:00] VITALS: BP 115/79; TEMP 98.8; O2SAT 99
[2024-12-31] MEDS ORDERED: oxyCODONE IR immediate release 5 MG TABLET PO PRN (09:00)
[2024-12-31] MEDS ORDERED: POLYETHYLENE GLYCOL 3350 17 GM POWD.PACK PO PRN (09:00)
[2024-12-31] MEDS ORDERED: LORAZEPAM 0.5 MG TABLET PO PRN (09:30)
[2024-12-31] MEDS: SUCRALFATE 1 G TABLET PO SCH (10:29)
[2024-12-31] MEDS: PANTOPRAZOLE 40 MG TABLET.DR PO SCH (10:30)
[2024-12-31] MEDS: SENNOSIDES 8.6 MG TABLET PO SCH (10:30)
[2024-12-31] MEDS: DOCUSATE SODIUM 100 MG CAPSULE PO SCH (10:30)
[2024-12-31 11:37] LABS: PLATELET COUNT (AUTO) 276 K/uL (150-450); RED BLOOD CELL COUNT(AUTO) 3.22 MIL/uL (4.0-5.2); RED CELL DISTRIBUTION WIDTH 16.3 % (11.5-15.0); WHITE BLOOD COUNT (AUTO) 5.5 K/uL (4.3-11.0)
[2024-12-31 11:52] LABS: CALCIUM, SERUM 7.7 mg/dL (8.5-10.1); CREATININE 0.9 mg/dL (0.6-1.3); PHOSPHORUS 2.9 mg/dL (2.5-4.9); SODIUM SERUM 137.0 mmol/L (136-145); UREA NITROGEN, BLOOD 14.0 mg/dL (7-18)
[2024-12-31] MEDS: CALCIUM ACETATE 667 MG CAP/TAB PO SCH (13:50)
[2024-12-31 16:00] VITALS: BP 119/71; TEMP 97.7; O2SAT 98
[2024-12-31] MEDS: PROSOURCE / PROSTAT (PYXIS) 30 ML UDC PO SCH (17:00)
[2024-12-31] MEDS: POTASSIUM CHLORIDE 20 MEQ POWDER PACKET PO ONE (19:06)
[2024-12-31 20:00] VITALS: BP 110/70; TEMP 97.3; O2SAT 98
[2024-12-31] MEDS: MIRTAZAPINE 15 MG TABLET PO SCH (21:06)
[2024-12-31] MEDS: OLANZAPINE 5 MG TABLET PO SCH (21:06)
[2025-01-01] MEDS: LEVOTHYROXINE SODIUM 75 MCG TABLET PO SCH (06:36)
[2025-01-01 08:00] VITALS: BP 134/90; TEMP 97.5; O2SAT 100
[2025-01-01] MEDS: MODAFINIL 100 MG TABLET PO SCH (09:49)
[2025-01-01] MEDS: CHOLECALCIFEROL 1,000 UNIT TABLET (VIT D3) PO SCH (09:49)
[2025-01-01] MEDS: MEGESTROL ACETATE 40 MG TABLET PO SCH (09:54)
[2025-01-01] MEDS: VIT B CMPLX 3/FA/VIT C/BIOTIN 1 TAB TABLET PO SCH (09:54)
[2025-01-01 10:45] LABS: CALCIUM, SERUM 7.7 mg/dL (8.5-10.1); CREATININE 1.0 mg/dL (0.6-1.3); SODIUM SERUM 136.0 mmol/L (136-145); UREA NITROGEN, BLOOD 12.0 mg/dL (7-18)
[2025-01-01 11:12] LABS: PLATELET COUNT (AUTO) 491 K/uL (150-450); RED BLOOD CELL COUNT(AUTO) 3.06 MIL/uL (4.0-5.2); RED CELL DISTRIBUTION WIDTH 15.9 % (11.5-15.0); WHITE BLOOD COUNT (AUTO) 5.6 K/uL (4.3-11.0)
[2025-01-01 16:00] VITALS: BP 147/76; TEMP 97.9; O2SAT 97
[2025-01-01 16:07] LABS: LYMPHOCYTES % (MANUAL) 15 % (16-48); MONOCYTES % (MANUAL) 5 % (0-11.0); NEUTROPHILS % (MANUAL) 80 (42-76)
[2025-01-01 16:08] LABS: PLATELET ESTIMATE ADEQUATE
[2025-01-01] MEDS: POTASSIUM CHLORIDE 20 MEQ POWDER PACKET PO ONE (18:26)
[2025-01-01 20:00] VITALS: BP 115/75; TEMP 97.3; O2SAT 97
[2025-01-02 08:00] VITALS: BP 135/73; TEMP 97.3; O2SAT 98
[2025-01-02 15:00] VITALS: BP 118/72; TEMP 97.7; O2SAT 97
[2025-01-02 20:00] VITALS: BP 116/73; TEMP 98.2; O2SAT 97
[2025-01-03 08:00] VITALS: BP 114/72; TEMP 98.6; O2SAT 100
[2025-01-03 16:00] VITALS: BP 118/75; TEMP 97.7; O2SAT 99
[2025-01-03 20:00] VITALS: BP 114/93; TEMP 97.7; O2SAT 96
[2025-01-03] MEDS: MIRTAZAPINE 15 MG TABLET PO SCH (21:49)
[2025-01-04 08:00] VITALS: BP 109/75; TEMP 97.5; O2SAT 98
[2025-01-04] MEDS: OLANZAPINE 10 MG VIAL IM SCH (09:52)
[2025-01-04 16:00] VITALS: BP 100/61; TEMP 97.9; O2SAT 98
[2025-01-04 20:00] VITALS: BP 110/70; TEMP 98.6; O2SAT 100
[2025-01-05 08:00] VITALS: BP 105/61; TEMP 98.1; O2SAT 99
[2025-01-05] MEDS ORDERED: OLANZAPINE 10 MG VIAL IM PRN (09:30)
[2025-01-05] MEDS: OLANZAPINE ZYDIS 5 MG TAB.RAPDIS PO SCH (10:12)
[2025-01-05] MEDS ORDERED: OLAN5TAB6 PO (11:33)
[2025-01-05] MEDS ORDERED: MEGE40TA7 PO (11:33)
== END 2025-01-05 16:31 | DRG 435 ==
LOC: ER 15:26 → MED 18:43
PROVIDERS: ADMIT Nurse Practitioner Family; ATTEND Internal Medicine
DX: C25.9 Malignant neoplasm of pancreas, unspecified (principal); G93.41 Metabolic encephalopathy; J90 Pleural effusion, not elsewhere classified; D68.59 Other primary thrombophilia; F33.3 Major depressive disorder, recurrent, severe with psychotic symptoms; C79.9 Secondary malignant neoplasm of unspecified site; F02.83 Dementia in other diseases classified elsewhere, unspecified severity, with mood disturbance; R62.7 Adult failure to thrive; K21.9 Gastro-esophageal reflux disease without esophagitis; G30.9 Alzheimer's disease, unspecified; F02.80 Dementia in other diseases classified elsewhere, unspecified severity, without behavioral disturbance, psychotic disturbance, mood disturbance, and anxiety; E78.5 Hyperlipidemia, unspecified; J44.9 Chronic obstructive pulmonary disease, unspecified; M19.90 Unspecified osteoarthritis, unspecified site; R13.10 Dysphagia, unspecified; K80.20 Calculus of gallbladder without cholecystitis without obstruction; Z79.4 Long term (current) use of insulin; D64.9 Anemia, unspecified; E03.9 Hypothyroidism, unspecified; Z79.899 Other long term (current) drug therapy; I10 Essential (primary) hypertension; E11.9 Type 2 diabetes mellitus without complications; R53.1 Weakness
CPT/HCPCS: 36415; 71045-TC; 80048-TC; 83735-TC; 84100-TC; 84439-TC; 84443-TC; 85025-TC; 85027-TC; 85730-TC; 87081-TC; 92526; 92611; G0378; J1650; J3490; J7040; J7042